=== PATIENT | female | born 1975 | race Caucasian/White ===

== ENCOUNTER 2020-08-16 09:57 | Emergency (ER) | payer OTHER, SELFPAY ==
--- NOTE | ~2020-08-16 | XR_ITS ---
EXAMINATION: XR foot LT min 3V EXAM DATE: 08/16/2020 10:31 INDICATION: Initial encounter following injury, with pain of the left foot. Tripped. TECHNIQUE: Left foot dorsoplantar, lateral and oblique projections obtained and reviewed. Comparison is made to prior examination from 03/06/2010. FINDINGS: Left metatarsal bones unremarkable. Small calcaneal spurs. There are no acute fractures o r dislocations identified. There is no subcutaneous gas. The soft tissue is unremarkable. There a re no radiopaque foreign bodies. IMPRESSION: No acute osseous findings. Reviewed, dictated and finalized at location A. IMPRESSION: No acute osseous findings.
[2020-08-16 10:01] VITALS: BP 142/80; PULSE 75; RESP 18; TEMP 36.2; O2SAT 100
--- NOTE | 2020-08-16 10:54 | ED.LOWEXIN ---
HPI - Extremity Injury (Lower) General Chief Complaint: Extremity Injury, Lower Stated Complaint: left foot injury Time Seen by Provider: 08/16/20 10:02 Source: RN notes reviewed History of Present Illness HPI Narrative: Patient presents emergency department from home for left foot pain. Patient states last night she was stepping down a step and caught her left foot hyperextending her toes causing pain at the base of the third fourth toe. States the pain is worse with stepping down on the foot she denies any pain in the ankle or knee she denies any other injury. Denies any numbness or tingling the extremities denies any need for pain medication at this time Related Data Home Medications Medication Instructions Recorded Confirmed amlodipine 5 mg PO DAILY 08/16/20 fluoxetine 40 mg PO DAILY 08/16/20 lansoprazole 15 mg PO DAILY 08/16/20 loratadine [Claritin] 10 mg PO DAILY 08/16/20 Allergies Allergy/AdvReac Type Severity Reaction Status Date / Time erythromycin base Allergy Mild Hives Verified 08/16/20 10:12 Review of Systems Review of Systems: Narrative: Gen.: Denies fevers or chills Musculoskeletal: See HPI Neuro: Denies numbness, tingling, weakness Skin: Denies rash Endo: Denies DM PMFSH Past Medical History Medical History (Updated 08/16/20 @ 10:57 by Devin Trevizo DO) Patient denies significant medical history Social History Social History (Updated 08/16/20 @ 10:54 by Devin Trevizo DO) Smoking status: Never smoker Gender identity (if verbalized by the patient): Female Exam Narrative: Exam Narrative: APPEARANCE: No acute distress, nontoxic, resting in bed Eyes: EOMI HEENT: Normocephalic, atraumatic, RESPIRATORY: No respiratory distress MUSCULOSKELETAl: Tender to palpation over the left dorsal foot at the base of the third fourth and fifth no tenderness of the ankle or knee dorsalis pedis pulse 2+, neurovascular intact NEURO: Awake and alert. Following commands, speech normal, no focal deficits SKIN:: Warm, dry. Normal Color no rash or lesions Course Course Emergency Course: Discussed with patient results of workup and diagnosis. Discussed need for follow-up with primary care, proper use of medication, and reasons to return to the emergency department. Patient understands and agrees to current treatment plan Vital Signs Vital signs: Vital Signs Temperature 97.2 F L 10/03/20 10:01 Pulse Rate 75 08/16/20 10:01 Respiratory Rate 18 08/16/20 10:01 Blood Pressure 142/80 H 08/16/20 10:01 Pulse Oximetry 100 08/16/20 10:01 Temperature 97.2 F L 08/16/20 10:01 Pulse Rate 75 08/16/20 10:01 Respiratory Rate 18 08/16/20 10:01 Blood Pressure 142/80 H 08/16/20 10:01 Pulse Oximetry 100 08/16/20 10:01 MDM - Extremity Injury (Lower) Imaging Data Radiologist's impression: ITS Impressions Foot X-Ray 08/16/20 10:38 IMPRESSION: No acute osseous findings. Discharge Plan Discharge Clinical Impression: Sprain of foot, left Patient Disposition: Home, Self-Care Condition: Stable Instructions: Antibiotic Form, Foot Sprain (ED) Additional Instructions: Return for increasing pain numbness or tingling in extremities or any other symptoms or concern Prescriptions: New ibuprofen [IBU] 600 mg tablet 600 mg PO Q6H PRN (Reason: pain) Qty: 20 RF: 0 No Action fluoxetine 40 mg capsule 40 mg PO DAILY RF: 0 amlodipine 5 mg tablet 5 mg PO DAILY RF: 0 loratadine [Claritin] 10 mg Tablet 10 mg PO DAILY RF: 0 lansoprazole 15 mg Tablet,Disintegrat, Delay Rel 15 mg PO DAILY RF: 0 Follow-up/Referrals: PHYSICIAN NOT ON STAFF,NONSTAFF [Primary Care Provider] - (Follow-up with your primary care physician in 3 to 4 days for further treatment and evaluation) Time of Disposition: 10:57
== END 2020-08-16 11:10 | disposition home or self-care (01) ==
PROVIDERS: Emergency Provider Emergency Medicine; PCP Internal Medicine
DX: S93.602A Unspecified sprain of left foot, initial encounter (principal); X50.9XXA Other and unspecified overexertion or strenuous movements or postures, initial encounter
CPT/HCPCS: 73630; 99283

== ENCOUNTER 2020-08-24 14:08 | Emergency (ER) | payer OTHER, SELFPAY ==
--- NOTE | ~2020-08-24 | XR_ITS ---
XR finger 3rd LT min 2V 08/24/2020 14:27 INDICATION: Left third finger pain after trauma PROCEDURE: 3 views left third finger COMPARISON: No prior studies for comparison. FINDINGS: Fracture, dislocation or subluxation is not identified. The soft tissues appear within norm al limits. No foreign bodies are identified. IMPRESSION: 1: NO ACUTE BONE OR JOINT ABNORMALITY IDENTIFIED. Reviewed, dictated and finalized at location A.
[2020-08-24 14:17] VITALS: BP 132/61; PULSE 78; RESP 16; TEMP 36.9; O2SAT 98
--- NOTE | 2020-08-24 14:30 | ED.UPPEXIN ---
HPI - Extremity Injury (Upper) General Chief Complaint: Extremity Injury, Upper Stated Complaint: injury left 3rd finger Time Seen by Provider: 08/24/20 14:30 Source: patient Mode of arrival: ambulatory Limitations: no limitations History of Present Illness HPI narrative: Annabel Sykes is a 44 yo female with a PMH of depression, HTN, GERD, seasonal allergies who comes to [facility] care with c/o injury to third finger of L hand-finger got caught in ball of [employer] car connection 2 hours ago and was crushed between a camper and car the full weight of camper had not been released. She admittedly put ice and on her finger and putting cold water and took ibuprofen; initially finger but currently has feeling in third finger; minimal swelling Related Data Home Medications Medication Instructions Recorded Confirmed amlodipine 5 mg PO DAILY 08/16/20 fluoxetine 40 mg PO DAILY 08/16/20 lansoprazole 15 mg PO DAILY 08/16/20 loratadine [Claritin] 10 mg PO DAILY 08/16/20 Allergies Allergy/AdvReac Type Severity Reaction Status Date / Time erythromycin base Allergy Mild Hives Verified 08/16/20 10:12 Review of Systems Review of Systems: Narrative: CONSTITUTIONAL: Denies fever, chills, sweats. EYES: Denies visual changes, redness, discharge. ENT: Denies rhinorrhea, congestion, sore throat, otalgia. CARDIOVASCULAR: Denies chest pain, palpitations, edema. RESPIRATORY: Denies dyspnea, wheezing, cough GASTROINTESTINAL: Denies abdominal pain, nausea, vomiting, diarrhea. GENITOURINARY: Denies dysuria, hematuria, abnormal discharge SKIN: Denies rash or itching. NEUROLOGIC: Denies numbness, or focal weakness. PSYCHIATRIC: Denies anxiety or depression. Finger of creel hand crush between camper and car PMFSH Past Medical History Medical History (Updated 08/24/20 @ 14:45 by Liliane Slaughter CNP) HTN (hypertension) Patient denies significant medical history Family History Family History (Updated 08/24/20 @ 14:41 by Liliane Slaughter CNP) Other Hypertension Social History Social History (Updated 08/24/20 @ 14:41 by Liliane Slaughter CNP) Smoking status: Never smoker Alcohol intake: current Gender identity (if verbalized by the patient): Female Comments At time of signature, I agree with nursing past medical, surgical, social and family history. There is no relevant family history pertinent to the presenting complaint. Exam Narrative: Exam Narrative: GENERAL: This is a well-nourished, well-developed patient, in mild distress. HEAD: normocephalic, atraumatic. EYES: Sclera clear/white. Vision is grossly intact. EARS: External ears normal,. Hearing grossly intact. NOSE: External nose normal without nasal discharge, nares without redness, no rhinorrhea. THROAT: Mucous membranes moist, NECK: Neck supple, CARDIOVASCULAR: Regular rate and rhythm without murmurs, gallops, or rubs. RESPIRATORY: Clear to auscultation. Breath sounds equal bilaterally. No wheezes, rales, or rhonchi. GASTROINTESTINAL: Abdomen soft, SKIN: warm, intact with no suspicious lesions . Number of creel hand has good capillary refill is pink, tender at tip around nail but no grossly open wound, 5 out of 5 in her finger strength, supinate and pronate hand without difficulty NEURO: awake, alert, and oriented to person, place and time. There were no obvious focal neurologic abnormalities. Steady gait EXTREMITIES: Normal range of motion. BACK: Nontender without deformity Course Course Emergency Course: Here for crush injury of left middle finger that happened about 2 hours prior to arrival X-ray negative for dislocation fracture or subluxation; finger splint applied; patient instructed to use ice and ibuprofen Follow-up with primary care for physician Vital Signs Vital signs: Vital Signs Temperature 98.5 F 08/24/20 14:17 Pulse Rate 78 08/24/20 14:17 Respiratory Rate 16 08/24/20 14:17 Blood Pressure 132/61 08/24/20 14:17 Pulse Oximetr
== END 2020-08-24 14:51 | disposition home or self-care (01) ==
PROVIDERS: Emergency Provider Nurse Practitioner
DX: S63.633A Sprain of interphalangeal joint of left middle finger, initial encounter (principal); W23.0XXA Caught, crushed, jammed, or pinched between moving objects, initial encounter; I10 Essential (primary) hypertension; F32.9 Major depressive disorder, single episode, unspecified; K21.9 Gastro-esophageal reflux disease without esophagitis
CPT/HCPCS: 29130; 73140; 99213; G0463

== ENCOUNTER 2021-06-22 12:33 | Emergency (ER) | payer OTHER, SELFPAY ==
[2021-06-22 12:47] VITALS: BP 134/90; PULSE 73; RESP 18; TEMP 36.4; O2SAT 100
--- NOTE | 2021-06-22 12:57 | ED.SKABFB ---
HPI - Skin/Abscess/Foreign Bdy General Chief complaint: Skin/Abscess/Foreign Body Stated complaint: Left Hip Pain Time Seen by Provider: 06/22/21 12:57 Source: patient and RN notes reviewed Mode of arrival: ambulatory Limitations: no limitations History of Present Illness HPI narrative: 45-year-old female presents to the [facility] with complaints of left lower back into left hip pull. Right-sided hip sciatica. Patient states that she has been trying to work out her right-sided sciatica with pain lateral aspect of her right leg. States that today started having left lower back pain. States she has been compensating for the right hip pain. States it feels like a pulled muscle. Denies any trauma to the area. Denies any loss retention of bladder or bladder. No numbness or tingling in the left side. Walks with a normal gait. Related Data Home Medications Medication Instructions Recorded Confirmed amlodipine 5 mg PO DAILY 08/16/20 fluoxetine 40 mg PO DAILY 08/16/20 lansoprazole 15 mg PO DAILY 08/16/20 Allergies Allergy/AdvReac Type Severity Reaction Status Date / Time erythromycin base Allergy Mild Hives Verified 08/16/20 10:12 Review of Systems Review of Systems: All systems reviewed & are unremarkable except as noted in HPI and below Constitutional: Constitutional: Reports no additional constitutional complaints, Denies chills and Denies fever(s) Eyes: Eyes: Reports no additional eye complaints ENT: Reports system reviewed and no additional complaints, except as documented Cardiovascular: Cardiovascular: Reports no additional cardiovascular complaints and Denies chest pain Respiratory: Respiratory: Reports no additional respiratory complaints Gastrointestinal: Gastrointestinal: Reports no additional gastrointestinal complaints, Denies abdominal pain, Denies nausea and Denies vomiting Musculoskeletal: Musculoskeletal: Reports as per HPI, Reports back pain and Reports arthralgias (Right SI. Left hip) Integumentary/Breasts: Skin/Breast: Reports system reviewed and no additional complaints, except as docu Neurologic: Reports system reviewed and no additional complaints, except as documented Psychiatric: Psychiatric: Reports no additional psychiatric complaints Allergic/Immunologic: Allergic/Immunologic: Reports no additional allergic/immunologic complaints [facility] Past Medical History Medical History HTN (hypertension) Patient denies significant medical history Family History Family History Other Hypertension Social History Social History Smoking status: Never smoker Alcohol intake: current Gender identity (if verbalized by the patient): Female Comments At the time of my signature, I reviewed and agree with the nursing past medical, surgical, social, and family history. There is no relevant family history pertinent to the patient complaint. Exam Const: General: healthy appearing, no acute distress and alert Nutritional Appearance: well nourished and obese morbidly obese Orientation/consciousness: patient oriented x3 Limitations: no limitations HENMT: Head: normal to inspection Eyes: Pupils: Equal, round and reactive pupils present Neck: Neck: normal visual inspection, no lymphadenopathy and no meningeal signs Chest: Chest palpation & inspection: normal inspection of the chest Resp: Effort & Inspection: normal respiratory effort and no use of accessory muscles Auscultation: clear to auscultation bilaterally Cardio: Rate: regular rate Rhythm: regular rhythm GI: GI Palp: Yes Soft to palpation and No Tenderness to palpation present (GI) : General: Yes no CVA tenderness Back/Spine/Pelvis: Back: no CVA tenderness Skin: General skin exam: normal color Rashes: no rashes Wounds: no wounds Neuro: General: patient oriented x3, moves all extr
== END 2021-06-22 13:13 | disposition home or self-care (01) ==
PROVIDERS: Emergency Provider Nurse Practitioner
DX: S39.012A Strain of muscle, fascia and tendon of lower back, initial encounter (principal); I10 Essential (primary) hypertension; M54.41 Lumbago with sciatica, right side; X50.0XXA Overexertion from strenuous movement or load, initial encounter
CPT/HCPCS: 99213; G0463